=== PATIENT | male | born 1995 | race Caucasian/White ===

== ENCOUNTER 2019-01-19 12:51 | Emergency (ER) | payer OTHER ==
[2019-01-19 12:57] VITALS: PULSE 67; RESP 20; TEMP 97.9
[2019-01-19 13:23] VITALS: BP 145/97
--- NOTE | 2019-01-19 13:34 | ED ---
General Adult HPI - General Chief complaint: Extremity Problem,Nontraumatic Stated complaint: Arm pain Source: family, RN notes reviewed Mode of arrival: ambulatory Limitations: no limitations - History of Present Illness Initial comments: Patient is a 23-year-old male who presents to the emergency department with complaint of bruising to his left arm after a blood draw at his doctor's office last week. Denies any trauma or injury. Denies blood thinner use. Patient denies any recent fever, chills, shortness of breath, chest pain, back pain, abdominal pain, nausea or vomiting, dysuria or hematuria, constipation or diarrhea, headaches or visual changes, or any other complaints. - Related Data Allergies Allergy/AdvReac Type Severity Reaction Status Date / Time Penicillins Allergy Rash/Hives Verified 01/19/19 12:56 Review of Systems ROS Statement: Those systems with pertinent positive or pertinent negative responses have been documented in the HPI. ROS Other: All systems not noted in ROS Statement are negative. Past Medical History Past Medical History: Asthma History of Any Multi-Drug Resistant Organisms: None Reported Past Surgical History: No Surgical Hx Reported Past Psychological History: No Psychological Hx Reported Smoking Status: Never smoker Past Alcohol Use History: None Reported, Daily Past Drug Use History: None Reported General Exam Limitations: no limitations General appearance: alert, in no apparent distress Head exam: Present: atraumatic, normocephalic Eye exam: Present: normal appearance Respiratory exam: Present: normal lung sounds bilaterally. Absent: wheezes, rales, rhonchi Cardiovascular Exam: Present: regular rate, normal rhythm Extremities exam: Present: full ROM (Upper extremities.), normal capillary refill (Upper extremities.), other (Radial pulses palpable and strong bilaterally. ) Neurological exam: Present: alert, oriented X3. Absent: motor sensory deficit Skin exam: Present: warm, dry, other (Contusion to left arm.) Course Vital Signs 01/19/19 01/19/19 12:53 13:23 Temperature 97.9 F Pulse Rate 67 Respiratory 20 Rate Blood Pressure 151/100 145/97 O2 Sat by Pulse 99 Oximetry Medical Decision Making - Medical Decision Making There are no concerning symptoms at this time. Patient instructed to use heat as needed. Case discussed in detail with attending physician Dr. Lassiter. Disposition Clinical Impression: Contusion Disposition: HOME SELF-CARE Condition: Good Instructions (If sedation given, give patient instructions): Contusion in Adults (ED) Additional Instructions: Follow-up with your PCP in 1 to 2 days. Return to the emergency department if your symptoms worsen or other concerns. Is patient prescribed a controlled substance at d/c from ED?: No Referrals: Juanito Dowd MD [Primary Care Provider] - 1-2 days Time of Disposition: 13:34
== END 2019-01-19 13:40 | disposition home or self-care (01) ==
LOC: EC 12:51
DX: S40.022A Contusion of left upper arm, initial encounter (principal); Y65.8 Other specified misadventures during surgical and medical care; Z88.0 Allergy status to penicillin
CPT/HCPCS: 99283

== ENCOUNTER → 2019-03-14 | Outpatient (CLI) | payer OTHER ==
--- NOTE | 2019-03-14 08:54 | CT ---
EXAMINATION TYPE: CT brain wo con DATE OF EXAM: 03/14/2019 COMPARISON: None. HISTORY: Benign essential tumor CT DLP: 1094 mGycm. Automated Exposure Control for Dose Reduction was Utilized. TECHNIQUE: CT scan of the head is performed without contrast. FINDINGS: There is no acute intracranial hemorrhage, mass effect, or midline shift identified. The ventricles and sulci are within normal limits in size. Coleman-white matter differentiation is fairly well-maintained. The globes are intact and the visualized sinuses are clear. IMPRESSION: Fairly unremarkable study.
== END | disposition home or self-care (01) ==
LOC: RADCTMAIN 08:17
PROVIDERS: ATTEND Psychiatry & Neurology Neurology
DX: G25.0 Essential tremor (principal)
CPT/HCPCS: 70450

== ENCOUNTER → 2025-04-26 | Outpatient (CLI) | payer OTHER ==
--- NOTE | 2025-04-26 11:50 | XR ---
EXAMINATION TYPE: XR lumbosacral spine 5 views DATE OF EXAM: 04/26/2025 11:38 AM COMPARISON: None CLINICAL INDICATION: Male, 29 years old with history of OTH INTVRT DISC DEGEN, LUM RGN W DISCOG BCK LW EXTRM PAIN; PHH, pain FINDINGS: 5 lumbar type vertebral bodies. Vertebral heights are preserved and alignment is maintained. Mild deg enerative disc disease upper lumbar spine. Small endplate Schmorl's nodes T12 and L1 levels. IMPRESSION: 1. Mild degenerative disc disease lower thoracic and upper lumbar spine. 2. No vertebral compression collapse or malalignment. [facility], , 04/26/2025 11:47 AM
== END | disposition home or self-care (01) ==
LOC: RADXRMAIN 11:13
PROVIDERS: ATTEND Family Medicine
DX: M51.362 Other intervertebral disc degeneration, lumbar region with discogenic back pain and lower extremity pain (principal); M51.34 Other intervertebral disc degeneration, thoracic region
CPT/HCPCS: 72110